=== PATIENT | female | born 1990 | race Caucasian/White ===

== ENCOUNTER → 2023-10-09 11:27 | Outpatient (CLI) | payer BC, SELFPAY | PROVIDERS: PCP Student in an Organized Health Care Education/Training Program; Visit Provider Student in an Organized Health Care Education/Training Program | DX: R05.9 Cough, unspecified (principal) | CPT/HCPCS: 87635 ==

== ENCOUNTER 2024-03-12 08:53 | Outpatient (CLI) | payer BC, SELFPAY ==
--- NOTE | 2024-03-12 08:59 | XR_ITS ---
FINAL REPORT CLINICAL HISTORY: R forearm pain FINDINGS: Right wrist Three views were obtained. There is no acute fracture or dislocation. The joint spaces appear normal. No soft tissue abnormality is identified. IMPRESSION: No acute process. Reviewed, Interpreted and Dictated by Sawyer Brown MD Transcribed by Noni Campos Authenticated and [facility]
--- NOTE | 2024-03-12 08:59 | XR_ITS ---
FINAL REPORT CLINICAL HISTORY: R forearm pain, mass FINDINGS: Right forearm Three views were obtained. There is no acute fracture or dislocation. The joint spaces appear normal. There is soft tissue prominence along the anterior aspect of the distal forearm. No underlying bony abnormality is identified. IMPRESSION: Soft tissue prominence of the distal forearm. Reviewed, Interpreted and Dictated by Sawyer Brown MD Transcribed by Noni Campos Authenticated and [facility]
== END 2024-03-12 23:59 | disposition home or self-care (01) ==
LOC: RAD 08:53
PROVIDERS: PCP Student in an Organized Health Care Education/Training Program; Visit Provider Student in an Organized Health Care Education/Training Program
DX: M79.631 Pain in right forearm (principal); L03.113 Cellulitis of right upper limb; M25.531 Pain in right wrist
CPT/HCPCS: 73090; 73110

== ENCOUNTER 2024-03-28 07:01 | Day surgery (SDC) | payer BC, SELFPAY ==
[2024-03-28 07:39] VITALS: BP 133/92; PULSE 90; RESP 18; TEMP 36.7; O2SAT 99; BMI 28.0
[2024-03-28 08:28] VITALS: BP 119/77; PULSE 78; RESP 18; TEMP 36.6; O2SAT 98
--- NOTE | 2024-03-28 08:44 | EXP.OP.NOTE ---
Date of procedure: 03/28/24 Pre-op Diagnosis:: Abscessed cyst right forearm/wrist (atypical appearance/presentation) Post-op Diagnosis:: Same Procedure performed:: Incision and drainage with concomitant biopsy of overlying skin ? abscessed cyst right forearm/wrist Surgeon:: Rasta Fajardo MD Anesthesia: local Estimated blood loss (mL): 5 Operative findings:: No significant purulence noted Central portion of skin and subcutaneous tissue obtained for pathologic evaluation Operative note:: After informed consent was obtained the patient was taken to the procedure room. Her right distal forearm/wrist was prepped and draped in a sterile fashion. After infiltration with local anesthetic an incision was made around the central portion of the lesion. No obvious purulence noted. The underlying tissue was excised sharply and passed off for pathologic evaluation. Electrocautery was utilized to achieve hemostasis. The wound was packed open. Dressings were applied and patient was discharged home in stable condition. Condition: stable Disposition: no change Specimens:: Right forearm/wrist skin overlying abscessed cyst Complications:: No immediate
--- NOTE | 2024-03-28 08:55 | SUR.PHASEII ---
843- discharge instructions given the the patient and her . Dr Fajardo present at the bedside for discharge instructions. Instructions included keeping the dressing CDI until the follow up appointment and only doing a sponge bath he first 24-48 hours. The patient can remove the packing from the dressing in 24 hours and apply clean 4x4's and wrap again for 24 hours and apply bandage after that until follow up appointment. Patient can continue normal activity, and normal diet today. Any signs of infection that include fever, redness or swelling at the operative site, puss or drainage from the operative site, foul smell from the operative site, warrants a call to the office for an earlier appointment or an ER visit. Patient and verbalized understanding of discharge instructions. Patient walked to vehicle upon discharge with her and hospital staff.
== END 2024-03-28 08:43 | disposition home or self-care (01) ==
PROVIDERS: PCP Student in an Organized Health Care Education/Training Program; Visit Provider Surgery
PROC: (CPT 10060; principal; 2024-03-28 08:30)
DX: L72.8 Other follicular cysts of the skin and subcutaneous tissue (principal)
CPT/HCPCS: 10060; 11106

== ENCOUNTER 2024-05-15 09:55 | Outpatient (CLI) | payer BC, SELFPAY ==
[2024-05-15 19:17] LABS: Basophils % 0.7 % (0.1-2.0); Eosinophils # 0.1 K/mm3 (0.0-0.4); Eosinophils % 1.4 % (0.1-12.0); Hematocrit 40.7 % (37.0-47.0); Hemoglobin 14.1 g/dL (12.2-16.2); Lymphocytes # 1.6 K/mm3 (0.7-4.5); Lymphocytes % 27.5 % (10-50); Mean Corpuscular HGB Conc 34.6 g/dL (31.8-35.4); Mean Corpuscular Hemoglobin 32.5 pg (27.0-31.2); Mean Corpuscular Volume 93.9 fl (81-99); Mean Platelet Volume 8.6 fl (7.4-10.4); Monocytes # 0.4 K/mm3 (0.1-1.0); Monocytes % 6.6 % (1.7-9.3); Neutrophils # 3.7 K/mm3 (1.8-7.8); Neutrophils % 63.7 % (37.0-80.0); Platelet Count 220 K/mm3 (142-424); Red Blood Count 4.34 M/mm3 (4.20-5.40); Red Cell Distribution Width 13.3 % (11.5-17.5); White Blood Count 5.8 K/mm3 (4.8-10.8)
[2024-05-15 19:27] LABS: Alanine Aminotransferase 16 U/L (12-78); Albumin Level 4.4 g/dl (3.5-5.0); Albumin/Globulin Ratio 1.5 (1.1-1.8); Alkaline Phosphatase 54 U/L (38-126); Anion Gap 14.1 mEq/L (5-15); Aspartate Amino Transferase 25 U/L (14-36); Bilirubin,Total 0.7 mg/dl (0.2-1.3); Blood Urea Nitrogen 9 mg/dl (7-17); Calcium 9.7 mg/dl (8.4-10.2); Carbon Dioxide 28 mmol/L (22.0-30.0); Chloride 100 mmol/L (98-107); Estimated Glomerular Filt Rate 97 ml/min (>60); GFR (African American) 117 ML/MIN (>60); Glucose 77 mg/dl (74-100); Potassium 4.1 mmoL/L (3.5-5.1); Sodium 138 mmol/L (136-145); Total Protein,Serum 7.4 g/dl (6.3-8.2)
[2024-05-15 19:34] LABS: C-Reactive Protein 6.2 mg/L (0-4)
[2024-05-15 19:45] LABS: 25-OH Vitamin D, Total 44.7 ng/mL (30-100)
[2024-05-15 19:56] LABS: Erythrocyte Sedimentation Rate 12 mm/hr (0-20)
[2024-05-15 20:08] LABS: Thyroid Stimulating Hormone 0.55 uIU/mL (0.465-4.68)
[2024-05-19 13:14] LABS: Anti-Centromere B Antibodies 0.5 AI (0.0-0.9); Anti-DNA (DS) Ab Qn <1 IU/mL (0-9); Anti-Jo-1 <0.2 AI (0.0-0.9); Anti-Smith Antibody <0.2 AI (0.0-0.9); Antichromatin Antibodies <0.2 AI (0.0-0.9); Antiscleroderma-70 Antibodies <0.2 AI (0.0-0.9); RNP Antibodies <0.2 AI (0.0-0.9); Sjogren's Anti-SS-A <0.2 AI (0.0-0.9); Sjogren's Anti-SS-B <0.2 AI (0.0-0.9)
== END 2024-05-15 23:59 | disposition home or self-care (01) ==
LOC: LAB.DROPOF 05-16 09:55
PROVIDERS: PCP Student in an Organized Health Care Education/Training Program; Visit Provider Student in an Organized Health Care Education/Training Program
DX: L53.9 Erythematous condition, unspecified (principal); Z13.29 Encounter for screening for other suspected endocrine disorder; Z13.21 Encounter for screening for nutritional disorder
CPT/HCPCS: 80050; 80053; 82306; 84443; 85025; 85651; 86140; 86225; 86235